=== PATIENT | female | born 1955 | race Caucasian/White ===

== ENCOUNTER 2018-07-27 06:04 | Day surgery (SDC) | payer BC ==
[~2018-07-27] VITALS: Ht 152.4 cm; Wt 43.9 kg
[~2018-07-27 06:04] MED LIST: IBUP-1541 PO; OMEP20CA16 PO
[2018-07-27 07:04] VITALS: Ht 152.4 cm; Wt 43.9 kg
[2018-07-27 07:32] VITALS: BP 122/67; PULSE 75; RESP 18
--- NOTE | 2018-07-27 08:37 | PREAC ---
Date/Time of Note Date/Time of Note DATE: 07/27/18 TIME: 08:36 Anesthesia Eval and Record Evaluation Time Pre-Procedure Interview DATE: 07/27/18 TIME: 08:36 Age 62 Sex female NPO: 8 hrs Preoperative diagnosis upper abdominal pain, change in bowel habits Planned procedure EGD, colonoscopy Past Medical History Past Medical History: Includes GI: GERD Surgery & Anesthesia Issues No known issue Meds Anticoagulation: No Beta Derek within 24 hr: No Reason Beta Derek not given: Pt. not on B-Derek Reported Medications Omeprazole* (Omeprazole*) 20 Mg Capsule.dr, 20 MG PO BID, #60 CAP 05/26/18 Ibuprofen* (Ibuprofen*) 400 Mg Tablet, 400 MG PO Q12H PRN for PAIN, TAB 05/26/18 Meds reviewed: Yes Allergies Coded Allergies: No Known Allergy (Unverified , 07/27/18) Allergies Reviewed: Yes Labs/Studies Labs Reviewed: Reviewed by anesthesiologist test: N/A Pre-procedure Exam Last vitals Vital Signs Date Temp Pulse Resp B/P (MAP) Pulse Ox O2 O2 Flow FiO2 Time Delivery Rate 07/27/18 97.6 75 18 122/67 98 Room Air 07:32 (85) Airway: Adequate mouth opening, Adequate thyromental dist Mallampati: Mallampati II Teeth: Normal Lung: Normal Heart: Normal ASA Physical Status ASA physical status: 2 Emergency: None Planned Anesthetic General/MAC: Mask Planned Pain Management Parenteral pain med Pre-operative Attestations Prior to commencing anesthesia and surgery, the patient was re-evaluated, there was verification of: *The patient's identity *The results of appropriate recent lab work and preoperative vital signs *The above evaluation not changing prior to induction *Anesthetic plan, risk benefits, alternative and complications discussed with patient/family; questions answered; patient/family understands, accepts and wishes to proceed. JANEL MURPHY MD Jul 27, 2018 08:37
[2018-07-27] MEDS ORDERED: LIDOCAINE 2% (SDV) 5 ML INJ ONE (08:42)
[2018-07-27] MEDS ORDERED: PROPOFOL 40 ML ONE (08:42)
[2018-07-27] MEDS ORDERED: ONDANSETRON 4 MG INJ IV PRN (09:00)
[2018-07-27 09:30] VITALS: BP 130/74; PULSE 100; RESP 20
--- NOTE | 2018-07-27 09:34 | PAC ---
Date/Time of Note Date/Time of Note DATE: 07/27/18 TIME: 09:33 Post-Anesthesia Notes Post-Anesthesia Note Last documented vital signs Vital Signs Date Temp Pulse Resp B/P (MAP) Pulse Ox O2 O2 Flow FiO2 Time Delivery Rate 07/27/18 97.6 75 18 122/67 98 Room Air 07:32 (85) Activity: WNL Respiratory function: WNL Cardiovascular function: WNL Mental status: Baseline Pain reasonably controlled: Yes Hydration appropriate: Yes Nausea/Vomiting absent: Yes Comments BP: 130/74 HR: 99 RR: 15 T: 98 SaO2: 99% JANEL MURPHY MD Jul 27, 2018 09:34
[2018-07-27 09:35] VITALS: BP 117/68; PULSE 94; RESP 18
[2018-07-27] MEDS ORDERED: PROPOFOL 20 ML ONE (09:38)
[2018-07-27 09:55] VITALS: BP 117/56; PULSE 75; RESP 20
== END 2018-07-27 15:16 | disposition home or self-care (01) ==
LOC: GIL 06:04
PROVIDERS: ATTEND Internal Medicine Gastroenterology
DX: R19.4 Change in bowel habit (principal); K64.8 Other hemorrhoids; K29.70 Gastritis, unspecified, without bleeding
CPT/HCPCS: 43239; 45378; 88305; 88312; Z7610